=== PATIENT | female | born 1985 | race African-American/Black ===

== ENCOUNTER 2023-12-14 19:57 | Emergency (ER) | payer BC ==
[~2023-12-14] VITALS: Ht 162.6 cm; Wt 77.3 kg
[2023-12-14 20:03] VITALS: TEMP 98.7
[2023-12-14] MEDS ORDERED: NS 1,000 ML IV ONE (20:30)
[2023-12-14] MEDS ORDERED: Ondansetron 4 MG/2 ML VIAL IV ONE ×2 (20:30→21:30)
[2023-12-14] MEDS ORDERED: Morphine 4 MG/ML VIAL IV ONE ×2 (20:30→22:15)
[2023-12-14 20:35] LABS: BASO % 0.3 % (0.0-2.0); EOS % 0.1 % (0.0-4.0); GRAN # 10.1 K/mm3 (1.4-6.5); GRAN % 87.9 % (42.2-75.2); LYMPH % 8.5 % (20.0-51.0); MEAN CELL VOLUME 76 fl (80.0-100.0); MEAN CORPUSCULAR HGB CONC 32 g/dl (33.0-37.0); MEAN PLATELET VOLUME 10.6 fl (7.4-10.4); MONO # 0.3 K/mm3 (0.1-0.6); MONO % 2.9 % (1.7-9.3); PLATELET COUNT 285 K/mm3 (130-400); REDCELL DISTRIBUTION WIDTH-CV 16.2 % (11.5-14.5)
[2023-12-14 20:36] LABS: HEMATOCRIT 30.3 % (37.0-47.0); HEMOGLOBIN 9.6 g/dl (12.5-16.0); MEAN CORPUSCULAR HEMOGLOBIN 24 pg (27-31)
[2023-12-14 20:50] LABS: ALBUMIN 3.6 g/dL (3.5-5.0); BILIRUBIN,TOTAL 0.4 mg/dL (0.2-1.2); C-REACTIVE PROTEIN 0.95 mg/dL (0.00-0.50); CALCIUM 9.1 mg/dL (8.4-10.2); CREATININE, serum 0.83 mg/dL (0.57-1.11); POTASSIUM 3.8 mEq/L (3.5-4.5); TOTAL PROTEIN 7.7 g/dl (6.2-8.1)
[2023-12-14 21:02] VITALS: BP 139/80
[2023-12-14] MEDS ORDERED: Iohexol 300 - 100 ML VIAL IV ONE (22:04)
[2023-12-14] MEDS ORDERED: NS 50 ML IV ONE (22:07)
[2023-12-14 22:32] LABS: PH 6.5 (5.0-8.5); URINE APPEARANCE TURBID (CLEAR/HAZY); URINE BLOOD 3+ (NEGATIVE); URINE COLOR RED (YELLOW); URINE GLUCOSE NEGATIVE (NEGATIVE); URINE KETONE 1+ (NEGATIVE); URINE NITRATE NEGATIVE (NEGATIVE); URINE PROTEIN(semi-quant) 2+ (NEGATIVE); URINE UROBILINOGEN 0.2 E.U/dL (0.2-1.0)
[2023-12-14 22:35] LABS: COLLECTION METHOD CLEAN CATCH
[2023-12-14] MEDS ORDERED: cefTRIAXone 1 G in Water For Injection,Sterile 10 ML IV ONE (23:00)
[2023-12-14] MEDS ORDERED: Home HYDROcodone/Acetaminophen 5/325 MG #4 TABS/PACK PO ONE (23:45)
[2023-12-15] MEDS ORDERED: CEFTIN500 MG PO (00:29)
[2023-12-15] MEDS ORDERED: ZOFRAN ODT4 MG PO (02:45)
[2023-12-15 02:57] VITALS: PULSE 80
== END 2023-12-15 02:58 | disposition home or self-care (01) ==
LOC: COL.ER 19:57
PROVIDERS: Nurse Practitioner
DX: N30.90 Cystitis, unspecified without hematuria (principal); Z88.2 Allergy status to sulfonamides
CPT/HCPCS: J0696; J2270; J2405; J7030; Q9967